=== PATIENT | male | born 1980 | race Caucasian/White ===

== ENCOUNTER 2022-04-04 11:30 | Observation (INO) | payer OTHER ==
[2022-04-04 12:54] LABS: ALT (SGPT) 37 U/L (8-55); AST (SGOT) 47 U/L (5-34); Albumin 4.6 g/dL (3.5-5.0); Alkaline Phosphatase 106 U/L (40-110); Anion Gap 17 mmol/L (10-20); BUN (Urea Nitrogen) 24 mg/dL (8.9-20.6); Bilirubin, Total 1.7 mg/dL (0.2-1.2); CK (CPK) 428 U/L (30-200); Calc. Creatinine Clearance 0 mL/min (70-130); Calcium 9.6 mg/dL (7.8-10.44); Carbon Dioxide 31 mmol/L (22-29); Chloride 79 mmol/L (98-107); Estimated GFR 63; Globulin 3.5 g/dL (2.4-3.5); Glucose 158 mg/dL (70-105); Lipase 182 U/L (8-78); Protein, Total 8.1 g/dL (6.0-8.3); Sodium 124 mmol/L (136-145)
[2022-04-04 12:58] LABS: #Eosinphils 0.1 10x3/uL (0.0-0.5); %Basophils 0.2 % (0.0-2.0); %Monocytes 11.8 % (0.0-10.0); %Neutrophils 69.7 % (40.0-75.0); Hemoglobin 14.9 g/dL (13.5-17.5); Mean Corpuscular HGB CONC 37.8 g/dL (32.0-36.0); Mean Corpuscular Hemoglobin 33.7 pg (27.0-33.0); Mean Corpuscular Volume 89.1 fl (81.2-95.1); Mean Platelet Volume 9.8 fl (7.4-10.4); Platelet Count 278 10x3/uL (150-450); Potassium 2.7 mmol/L (3.5-5.1); RBC Distribution Width 12.1 % (11.5-14.5); Red Blood Cell (RBC) Count 4.42 10x6/uL (4.32-5.72); White Blood Cell (WBC) Count 8.7 10x3/uL (3.5-10.5)
[2022-04-04] MEDS ORDERED: Potassium Chloride 20 MEQ/100 ML PREMIX BAG ONE (13:11)
[2022-04-04] MEDS ORDERED: Potassium Chloride 20 MEQ TAB ONE (13:12)
[2022-04-04] MEDS ORDERED: Magnesium 2 GM/50 ML BAG (IN WATER) ONE (15:12)
[2022-04-04 15:15] LABS: Bilirubin Neg (Negative); Blood, Urine Negative (Negative); Clarity Clear (Clear); Glucose, Urine (Dipstick) Normal (Negative); Ketone, Urine Negative (Negative); Leukocyte Negative (Negative); Nitrite Negative (Negative); Protein, Urine (Dipstick) Negative (Neg-Trace); Specific Gravity, Urine 1.015 (1.005-1.030); Urobilinogen Normal mg/dL (Less than 2)
[2022-04-04 15:50] LABS: Anion Gap 15 mmol/L (10-20); BUN (Urea Nitrogen) 20 mg/dL (8.9-20.6); Calc. Creatinine Clearance 0 mL/min (70-130); Carbon Dioxide 26 mmol/L (22-29); Chloride 88 mmol/L (98-107); Potassium 3.5 mmol/L (3.5-5.1); Sodium 125 mmol/L (136-145)
[2022-04-04 15:51] LABS: Calcium 8.8 mg/dL (7.8-10.44); Estimated GFR 90; Glucose 87 mg/dL (70-105); Magnesium 2.4 mg/dL (1.6-2.6)
[2022-04-04] MEDS ORDERED: Acetaminophen 325 MG TAB PO PRN (17:02)
[2022-04-04] MEDS ORDERED: Acetaminophen 650 MG Suppository PR PRN (17:02)
[2022-04-04] MEDS ORDERED: Ondansetron ODT 4 MG TAB PO PRN (17:02)
[2022-04-04 17:16] LABS: SARS-CoV-2 NAA Rapid Test Not Detected (NotDetected)
[2022-04-04 17:21] LABS: Acetaminophen Less than 10.0 mcg/mL (10.0-30.0); Alcohol Less than 10 mg/dL (Less than 10); Salicylate Less than 8.0 mg/dL (15.0-30.0); Sodium 126 mmol/L (136-145)
[2022-04-04 18:24] LABS: Amphetamine Not Detected (NotDetected); Barbiturates Screen Not Detected (NotDetected); Benzodiazepine Screen Not Detected (NotDetected); Cocaine Metabolite Screen Not Detected (NotDetected); Methadone Not Detected (NotDetected); Methamphetamine Not Detected (NotDetected); Opiate Screen Not Detected (NotDetected); Oxycodone Screen Not Detected (NotDetected); Phencyclidine (PCP) Not Detected (NotDetected); THC/Cannabinoid Screen Detected (NotDetected); Tricyclic Screen Not Detected (NotDetected)
[2022-04-04 20:14] LABS: Potassium, Urine 11.9 mmol/L; Sodium, Urine Less than 20 mmol/L (Not Available)
[2022-04-04] MEDS: Sodium Chloride 0.9% 1,000 ML IV SCH (21:26)
[2022-04-04 23:43] LABS: Sodium 129 mmol/L (136-145)
[2022-04-05] MEDS: Ondansetron PF 4 MG/2 ML Vial IVP PRN ×2 (00:15→09:33)
[2022-04-05] MEDS ORDERED: Famotidine/PF 20 mg/2ml Vial SLOW IVP SCH (01:15)
[2022-04-05] MEDS ORDERED: Ketorolac Tromethamine 30 MG/ML VIAL IVP SCH (01:15)
[2022-04-05] MEDS: Sodium Chloride 0.9% 1,000 ML IV SCH ×3 (03:10→18:18)
[2022-04-05] MEDS ORDERED: Morphine 2 MG/ML VIAL SLOW IVP SCH (03:15)
[2022-04-05] MEDS ORDERED: Promethazine HCl 12.5 MG in Sodium Chloride 0.9% 50 ML IVPB SCH (03:15)
[2022-04-05] MEDS ORDERED: Potassium Chloride 20 MEQ in Premix Bag 1 BAG IVPB SCH (04:45)
[2022-04-05 05:23] LABS: Anion Gap 12 mmol/L (10-20); BUN (Urea Nitrogen) 14 mg/dL (8.9-20.6); Calc. Creatinine Clearance 128 mL/min (70-130); Calcium 8.6 mg/dL (7.8-10.44); Carbon Dioxide 27 mmol/L (22-29); Chloride 90 mmol/L (98-107); Estimated GFR 104; Glucose 124 mg/dL (70-105); Potassium 3.1 mmol/L (3.5-5.1); Sodium 126 mmol/L (136-145)
[2022-04-05 05:37] LABS: #Monocytes 0.7 10x3/uL (0.0-1.1); #Neutrophils 7.1 10x3/uL (1.5-8.4); %Basophils 0.3 % (0.0-2.0); %Eosinophils 0.1 % (0.0-6.0); %Lymphocytes 8.2 % (18.0-47.0); %Monocytes 8.5 % (0.0-10.0); %Neutrophils 82.4 % (40.0-75.0); Hemoglobin 14.5 g/dL (13.5-17.5); Mean Corpuscular HGB CONC 37.4 g/dL (32.0-36.0); Mean Corpuscular Hemoglobin 34.4 pg (27.0-33.0); Mean Corpuscular Volume 92.2 fl (81.2-95.1); Mean Platelet Volume 9.8 fl (7.4-10.4); Platelet Count 273 10x3/uL (150-450); RBC Distribution Width 12.1 % (11.5-14.5); Red Blood Cell (RBC) Count 4.21 10x6/uL (4.32-5.72); White Blood Cell (WBC) Count 8.6 10x3/uL (3.5-10.5)
[2022-04-05 06:16] VITALS: BMI 22.6
[2022-04-05] MEDS ORDERED: Iopamidol 300 61% 100 ML VIAL FS ONE (08:48)
[2022-04-05] MEDS ORDERED: FLU VACC QS2022-23(6MOS UP)/PF 60 MCG/0.5 ML SYRINGE IM ONE (09:00)
[2022-04-05] MEDS ORDERED: Electrolyte Replacement Protocol 1 EACH FS SCH (10:30)
[2022-04-05] MEDS ORDERED: Midazolam HCl 2 mg/2 ml Vial SLOW IVP SCH (11:15)
[2022-04-05] MEDS ORDERED: Pantoprazole 40 MG VIAL IVP SCH ×2 (11:34→11:45)
[2022-04-05 11:38] LABS: Anion Gap 12 mmol/L (10-20); BUN (Urea Nitrogen) 11 mg/dL (8.9-20.6); Calc. Creatinine Clearance 137 mL/min (70-130); Calcium 8.9 mg/dL (7.8-10.44); Carbon Dioxide 27 mmol/L (22-29); Chloride 92 mmol/L (98-107); Estimated GFR 112; Glucose 119 mg/dL (70-105); Potassium 3.5 mmol/L (3.5-5.1); Sodium 127 mmol/L (136-145)
[2022-04-05] MEDS ORDERED: Metoclopramide HCl 10 MG/2 ML VIAL IVP SCH (11:45)
[2022-04-05] MEDS ORDERED: Potassium Chloride 20 MEQ TAB PO SCH (12:00)
[2022-04-05] MEDS: Potassium Chloride 20 MEQ in Premix Bag 1 BAG IVPB SCH ×2 (12:26→14:01)
[2022-04-05 18:07] LABS: Sodium 133 mmol/L (136-145)
[2022-04-05] MEDS: Pantoprazole 40 MG VIAL IVP SCH (21:25)
[2022-04-05] MEDS ORDERED: Nicotine 21 MG PATCH TOP SCH (22:30)
[2022-04-05 23:32] LABS: Sodium 133 mmol/L (136-145)
[2022-04-06 00:43] VITALS: BP 134/88; TEMP 97.5
[2022-04-06 04:57] LABS: #Eosinphils 0.1 10x3/uL (0.0-0.5); #Monocytes 0.7 10x3/uL (0.0-1.1); #Neutrophils 3.2 10x3/uL (1.5-8.4); %Basophils 0.7 % (0.0-2.0); %Eosinophils 1.4 % (0.0-6.0); %Lymphocytes 30.8 % (18.0-47.0); %Neutrophils 54.8 % (40.0-75.0); Hemoglobin 12.9 g/dL (13.5-17.5); Mean Corpuscular HGB CONC 35.5 g/dL (32.0-36.0); Mean Corpuscular Hemoglobin 33.6 pg (27.0-33.0); Mean Corpuscular Volume 94.5 fl (81.2-95.1); Mean Platelet Volume 9.3 fl (7.4-10.4); Platelet Count 258 10x3/uL (150-450); RBC Distribution Width 12.4 % (11.5-14.5); Red Blood Cell (RBC) Count 3.84 10x6/uL (4.32-5.72); White Blood Cell (WBC) Count 5.9 10x3/uL (3.5-10.5)
[2022-04-06 05:19] LABS: Anion Gap 8 mmol/L (10-20); BUN (Urea Nitrogen) 7 mg/dL (8.9-20.6); Calc. Creatinine Clearance 145 mL/min (70-130); Calcium 8.4 mg/dL (7.8-10.44); Carbon Dioxide 29 mmol/L (22-29); Chloride 99 mmol/L (98-107); Estimated GFR 114; Glucose 96 mg/dL (70-105); Magnesium 1.9 mg/dL (1.6-2.6); Potassium 3.3 mmol/L (3.5-5.1); Sodium 133 mmol/L (136-145)
[2022-04-06] MEDS ORDERED: Magnesium 2 GM/50 ML(in water) 2 GM in Premix Bag 1 BAG IVPB SCH (06:00)
[2022-04-06] MEDS: Potassium Chloride 20 MEQ in Premix Bag 1 BAG IVPB SCH ×2 (06:19→08:03)
[2022-04-06] MEDS: Pantoprazole 40 MG VIAL IVP SCH (08:04)
== END 2022-04-06 12:01 | disposition home or self-care (01) ==
LOC: CSHERS 11:30 → INTOOBSV 15:03 → CSHICU 15:03 → UNDOADMIN 20:53
PROVIDERS: ADMIT Student in an Organized Health Care Education/Training Program; ATTEND Student in an Organized Health Care Education/Training Program
DX: R55 Syncope and collapse (principal); N17.9 Acute kidney failure, unspecified; E87.1 Hypo-osmolality and hyponatremia; E87.6 Hypokalemia; R11.2 Nausea with vomiting, unspecified; R10.9 Unspecified abdominal pain; M10.9 Gout, unspecified; F17.210 Nicotine dependence, cigarettes, uncomplicated; Z79.899 Other long term (current) drug therapy; Z20.822 Contact with and (suspected) exposure to COVID-19
CPT/HCPCS: 36415; 71045; 74177; 80048; 80053; 80306; 80307; 81003; 82436; 82550; 83690; 83735; 83930; 83935; 84133; 84300; 84484; 84540; 84560; 85025; 93005; 94760; 96361; 96365; 96366; 96367; 96375; 96376; C9113; G0378; J1885; J2250; J2270; J2405; J2550; J2765; J3475; J3480; J7050; Q0162; Q9967; S0028; U0002